=== PATIENT | female | born 2000 | race Caucasian/White ===

== ENCOUNTER 2020-02-04 12:52 | Outpatient (CLI) | payer OTHER, SELFPAY ==
--- NOTE | ~2020-02-04 | MR_ITS ---
EXAMINATION: MR brain/brain stem wo con DATE: 02/04/2020 14:34 INDICATION: Migraine headache. TECHNIQUE: Magnetic resonance imaging (MRI) of the brain and brainstem was performed without intraven ous contrast. Sequences included sagittal and axial T1-weighted FSE, axial diffusion-weighted FS EPI, axial T2*-weighted GRE, axial T2-weighted FLAIR Propeller, and axial T2-weighted Propeller. Apparent diffusion coefficient (ADC) maps were created. COMPARISON: Brain MRI 06/10/2016 FINDINGS: There is no intracranial hemorrhage, acute infarction, or abnormal intracranial mass lesion . The ventricles are normal in size. The orbits are normal. The paranasal sinuses are clear. The mast oid air cells are normal. IMPRESSION: 1. Normal brain. Reviewed, dictated and finalized at location A. IMPRESSION: 1. Normal brain.
== END 2020-02-04 12:53 | disposition home or self-care (01) ==
PROVIDERS: PCP Family Medicine; Visit Provider Psychiatry & Neurology Neurology
DX: G43.909 Migraine, unspecified, not intractable, without status migrainosus (principal)
CPT/HCPCS: 70551

== ENCOUNTER 2025-04-16 02:35 | Emergency (ER) | payer OTHER, SELFPAY ==
--- NOTE | ~2025-04-16 | XR_ITS ---
Right Knee Technique: AP, lateral, and sunrise views were obtained. Clinical History: Pain Findings: There is acute fracture of the medial tibial plateau with probable mild depression, simple tibial spine region to the medial cortex at the medial tibial plateau region. Soft tissues are unrema rkable. Small joint effusion is seen. Impression: Acute fracture medial tibial plateau region, as detailed above. Reviewed, dictated and finalized at location . Impression: Acute fracture medial tibial plateau region, as detailed above.
--- OUTSIDE RECORDS SUMMARY | 2025-04-16 02:38 | XMS_ITS | Clinical Summary ---
Author Organization [facility] Address [address] [place] [address] Care Team Providers Care Welding Machine Operator Gas Metal Arc Name Role Phone Unavailable Primary Care Provider Unavailabl e Source Comments [facility],non-owned Affiliates and Associated Physician Practices is amultiple site organization consisting of ambulatory clinics and hospital sitesin [place], [place], [place] and [place]. This disclosure is being madepursuant to the Care Everywhere program and may not contain all information available regarding this patient. Last updated 18.[facility] Allergies No known active allergies Medications * Be aware that medications may not be up to date on this document. Alwaysverify current medications with the patient. naproxen (NAPROSYN) 500 MG tablet Take one tablet every 12 hours as needed for severe headache 40 Tab 3 6 Active Additional Information Patient not taking.Reported on 09/01/2021 topiramate (TOPAMAX) 25 MG tablet Take 2 tablets nightly. 60 Tab 6 6 Active Additional Information Patient not taking.Reported on 09/01/2021 cyclobenzaprine (FLEXERIL) 5 MG tablet Take 1 (one) tablet by mouth 3 times daily as needed (Muscle spasms) 30 tablet 1 Active methylPREDNISol one (MEDROL DOSEPAK) 4 MG tablet Take by mouth as directed 1 Each 1 Active Active Problems Problem Noted Date Diagnosed Date Concussion Post concussive syndrome Family History Medical History Relation Name Comments Depression Maternal Grandmother Migraine Neg Hx Seizures Neg Hx Relation Name Status Comments Maternal Grandmother Social History Tobacco Use Types Packs/Day Years Used Date Smoking Tobacco: Never Smokeless Tobacco: Never Tobacco Cessation:Counseling Given: Yes Alcohol Use Standard Drinks/Week Comments Not Asked 0 (1 standard drink = 0.6 oz pur e alcohol) PHQ-2 Answer Date Recorded PHQ2 TOTAL SCORE 0 09/01/2021 Comments No Sex and Gender Information Value Date Recorded Sex Assigned at Not on file Legal Sex Female 8:11 AM DEHYDRATING PRESS OPERATOR Gender Identity Not on file Sexual Orientation Not on file Last Filed Vital Signs Vital Sign Reading Time Taken Comments Blood Pressure 117/78 09/01/2021 7:26 PM DEHYDRATING PRESS OPERATOR Pulse 88 09/01/2021 7:26 PM DEHYDRATING PRESS OPERATOR Temperature 36.7 C (98.1 F) 09/01/2021 7:26 PM DEHYDRATING PRESS OPERATOR Respiratory Rate - - Oxygen Saturation 100% 09/01/2021 7:26 PM DEHYDRATING PRESS OPERATOR Inhaled Oxygen Concentration - - Weight 61.2 kg (135 lb) 09/01/2021 7:26 PM DEHYDRATING PRESS OPERATOR Height 162.6 cm (5' 4) 09/01/2021 7:26 PM DEHYDRATING PRESS OPERATOR Body Mass Index 23.17 09/01/2021 7:26 PM DEHYDRATING PRESS OPERATOR Plan of Treatment Health Maintenance Due Date Last Done Comments HIV SCREENING 2014 HPV VACCINE (1 - 3-dose series) 2014 HEPATITIS C SCREENING 02/06/2017 DTAP/TDAP/TD VACCINES (1 - Tdap) 2018 HEPATITIS B VACCINE (1 of 3 - 19+ 3-dose series) 2018 COVID-19 VACCINE (1 - 2023-2 5 season) 2024 DEPRESSION SCREENING 09/11/2024 INFLUENZA VACCINE (#1) 2025 ZOSTER VACCINE (1 of 2) 2049 HIB VACCINE Aged Out No longer eligi ble based on patient's age to complete this topic MENINGOCOCCAL (Group B) VACC INE SHARED DECISION-MAKING Aged Out No longer eligibl e based on patient's age to complete this topic MENINGOCOCCAL GROUPS A/C/Y/W VACCINE Aged Out No longer eligible b ased on patient's age to complete this topic PNEUMOCOCCAL VACCINE Aged Out No long er eligible based on patient's age to complete this topic Insurance [employer] MEDICAID - [place] [facility] [place] Advance Directives Documents on File Type Date Recorded Patient Estate Planning Counselor Expl anation Adv Directive/Living Will/POA 10/22/2015 9:00 AM
--- OUTSIDE RECORDS SUMMARY | 2025-04-16 02:38 | XMS_ITS | Clinical Summary ---
Author Organization [facility] Address [address] [place] [address] Care Team Providers Care Senior Business Consultant Name Role Phone Benita Jean MD Primary Care Provider U navailable Allergies No known active allergies Medications betamethasone dipropionate (DIPROSONE) 0.05 % OintmentIndication s:Rash Apply to affected area 2 times daily. 15 Gram 4 Active escitalopram oxalate (LEXAPRO) 10 mg tabletIndications: Mixed obsessional thoughts and acts,Generalized anxiety disorder Take 1 Tablet (10 mg) by mouth daily. 100 Tablet 3 5 Active hydrOXYzine HCL (ATARAX) 25 mg tabletIndications: Anxiety state Take 1 Tablet (25 mg) by mouth 3 times daily as needed for Itching. 90 Tablet 3 5 Active amphetamine-dextro amphetamine (Adderall XR) 25 mg Extended Release 24 hour capsuleIndications :Attention deficit hyperactivity disorder (ADHD), predominantly inattentive type Take 1 Capsule (25 mg) by mouth daily in the morning. Max Daily Amount: 25 mg 30 Capsule 5 Active Active Problems Problem Noted Date Diagnosed Date Rash 07/12/2024 Assessment & Plan (07/12/2024 4:45 PM CDT): New problem with uncertain diagnosis and prognosis. Will treat with triamcinolone topically. RTC if not clearing. Obsessive compulsive disorder 06/21/2024 Assessment & Plan (07/12/2024 4:45 PM CDT): Chronic problem, improving. Continue lexapro as ordered. Assessment & Plan (06/21/2024 4:20 PM CDT): Chronic problem, needing medication change due to medication complication/evidence of early serotonin syndrome. Stop duloxetine and start escitalopram 10mg po daily. Educated on the medication, its use, indications, and potential adverse effects of the medication. Generalized anxiety disorder 06/21/2024 Assessment & Plan (07/12/2024 4:45 PM CDT): Chronic problem, improved. Medication working well. Continue lexapro and hydroxyzine. Follow up in 2 months. Assessment & Plan (06/21/2024 4:22 PM CDT): Chronic problem, worsening. Will switch from duloxetine due to AE. Switch to escitalopram. Recommend use of hydroxyzine PRN. Education provided that patient should seek out emergency medical help or call 911 if having passive or active thoughts of self-harm, suicidal ideation, or homicidal ideation. Patient acknowledged understanding and provided verbal contract to adhere to these recommendations should these symptoms emerge. Long-term current use of stimulant 10/22/2023 Attention deficit hyperactiv ity disorder (ADHD), predominantly inattentive type 09/12/2022 Assessment & Plan (07/12/2024 4:46 PM CDT): Chronic problem, well controlled, even with reduced dosing of adderall. Continue current dosing of adderall with recheck in 2 months. Assessment & Plan (06/21/2024 4:21 PM CDT): Chronic problem. Due to drug interaction and increased effect of amphetamine in the setting of SSRI, recommend reducing dose back to 25mg for now. Will re-evaluate in 3 weeks. Refused influenza vaccine 09/12/2022 Assessment & Plan (07/12/2024 4:45 PM CDT): Flu shot declined. COVID-19 vaccination declined 09/12/2022 Resolved Problems Problem Noted Date Diagnosed Date Resolved Date Serotonin syndrome 06/21/2024 Assessment & Plan (06/21/2024 4:19 PM CDT): New problem. Patient exhibiting mild symptoms of serotonin syndrome, likely induced from synergistic combination of serotonin uptake blockage from both amphetamine and duloxetine (SNRI). Will down titrate adderall XR to 25mg and transition patient off of duloxetine over to escitalopram 10mg po daily. Follow up in 3 weeks in clinic for clinical follow up and evaluation. Patient educated on worsening symptoms and encouraged to follow up sooner should symptoms worsen. Encounters Date Type Department Care Team Description 03/26/2025 External Device Data [facility] ABSTRACTION Provider, Abstract 03/26/2025 External Device Data ST[facility] ABSTRACTION Provider, Abstract 03/26/2025 External Device Data [facility] ABSTRACTION Provider, Abstract 03/25/2025 External Device Data [facility] ABSTRACTION Provider, Abstract 02/25/2025 External Device Data [facility] ABSTRACTION Provider, Abstract 02/25/2025 External Device Data [facility] ABSTRACTION Provider, Abstract 2025 External Device Data [facility] ABSTRACTION Provider, Abstract 2025 External Device Data [facility] ABSTRACTION Provider, Abstract 02/07/2025 8:45 AM CDT - 02/07/2025 11:59 PM CDT Hospital Encounter [address] [address] Melchor Ramsay, DO Discharge Disposition: Home or Self Care 01/30/2025 External Device Data ST[facility] ABSTRACTION Provider, Abstract 01/14/2025 External Device Data [facility] ABSTRACTION Provider, Abstract 01/14/2025 External Device Data STL ABSTRACTION Provider, Abstract from Last 3 Months Family History Medical History Relation Name Comments No Known Problems Brother No Known Problems Father No Known Problems Mother No Known Problems Sister Relation Name Status Comments Brother Alive Father Alive Mother Alive Sister Alive Social History Tobacco Use Types Packs/Day Years Used Date Smoking Tobacco: Never Smokeless Tobacco: Never Tobacco Cessation:Counseling Given: No Alcohol Use Standard Drinks/Week Comments Yes 0 (1 standard drink = 0.6 oz pur e alcohol) 2 drinks Comments No Sex and Gender Information Value Date Recorded Sex Assigned at Female 05/02/2024 6:54 AM CDT Legal Sex Female 10:42 AM CDT Gender Identity Female 05/02/2024 6:54 AM CDT Sexual Orientation Lesbian or Saleem 05/02/2024 6: 54 AM CDT Last Filed Vital Signs Vital Sign Reading Time Taken Comments Blood Pressure 114/80 07/12/2024 4:01 PM CDT Pulse 78 07/12/2024 4:01 PM CDT Temperature 36.9 C (98.5 F) 07/12/2024 4:01 PM CDT Respiratory Rate 18 07/12/2024 4:01 PM CDT Oxygen Saturation 100% 07/12/2024 4:01 PM CDT Inhaled Oxygen Concentration - - Weight 68 kg (150 lb) 08/28/2024 5:36 PM JOURNEYMAN ELECTRICIAN PV INSTALLER Height 162.6 cm (5' 4) 08/28/2024 5:36 PM JOURNEYMAN ELECTRICIAN PV INSTALLER Body Mass Index 25.75 08/28/2024 5:36 PM JOURNEYMAN ELECTRICIAN PV INSTALLER Plan of Treatment Health Maintenance Due Date Last Done Comments HPV VACCINES (1 - 3-dose series) 2014 HEPATITIS B VACCINES (3 of 3 - 3-dose series) 07/29/2017 05/13/2017, 04/08/2017 HPV/Cotest (21-29) 02/12/2020 INFLUENZA VACCINE (#1) 2025 , 11/08/2023, 09/12/2022, Additional history exists CERVICAL CANCER SCREENING 05/11/2025 PAP SMEAR 05/11/2025 05/11/2022 DTAP/TDAP/TD VACCINES (2 - T d or Tdap) 04/08/2027 04/08/2017 CHLAMYDIA SCREENING (ANNUAL) 11-24 YEARS Discontinued 05/11/2022 Procedures Procedure Name Priority Date/Time Associated Diagnosis Comments MRI SHOULDER WO CONTRAST LEFT Stat 02/07/2025 9:37 AM CDT Strain of other muscles, fascia and tendons at shoulder and upper arm level, left arm, subsequent encounter VAGINOSIS/VAGINITIS PANEL PLUS Routine 05/11/2022 6:01 PM CDT Screening for STD (sexually transmitted disease) CERV/VAG CYTO AGE BASED SCREEN PAP Routine 05/11/2022 6:01 PM CDT Pap smear for cervical cancer screening from Last 3 Months or Most Recently Relevant to Health Maintenance Results * MRI SHOULDER WO CONTRAST LEFT (02/07/2025 9:37 AM CDT) Anatomical Region Laterality Modality Upper Extremity Magnetic Resonan ce 02/07/2025 9:43 AM CDT Impressions 02/07/2025 9:54 AM CDT IMPRESSION: 1. Unremarkable MR examination of the left shoulder. DICTATION LOCATION: Location [address] [place] [address] CPM Narrative 02/07/2025 9:54 AM CDT MRI SHOULDER WO CONTRAST LEFT Ordering provider: MELCHOR RAMSAY History: Strain of other muscles, fascia and tendons at shoulder and upper arm level, left arm, subsequent encounter. See Diagnosis. Comparison: Shoulder radiographs dated 12/16/2024 FINDINGS: There is a type 2 acromion without a subacromial spur. The acromioclavicular joint appears normal. No significant subacromial-subdeltoid bursitis. The rotator cuff muscle bulk is normal. The rotator cuff tendons are intact without evidence of tendinopathy or tear. On this non-arthrographic examination, the long head of biceps appears intact. No focal glenoid labral tear identified. No focal glenohumeral chondrosis. A physiologic amount of fluid is present in the glenohumeral joint. There is red marrow within the bones of the shoulder girdle. No acute fracture or bone marrow replacing lesion. Procedure Note Blaise Ayon MD - 02/07/2025 MRI SHOULDER WO CONTRAST LEFT Ordering provider: MELCHOR RAMSAY History: Strain of other muscles, fascia and tendons at shoulder and upper arm level, left arm, subsequent encounter. See Diagnosis. Comparison: Shoulder radiographs dated 12/16/2024 FINDINGS: There is a type 2 acromion without a subacromial spur. The acromioclavicular joint appears normal. No significant subacromial-subdeltoid bursitis. The rotator cuff muscle bulk is normal. The rotator cuff tendons are intact without evidence of tendinopathy or tear. On this non-arthrographic examination, the long head of biceps appears intact. No focal glenoid labral tear identified. No focal glenohumeral chondrosis. A physiologic amount of fluid is present in the glenohumeral joint. There is red marrow within the bones of the shoulder girdle. No acute fracture or bone marrow replacing lesion. IMPRESSION: 1. Unremarkable MR examination of the left shoulder. DICTATION LOCATION: Location [address] [place] [address] us Melchor Ramsay DO MR ORDERABLES Final Resu lt * CERV/VAG CYTO AGE BASED SCREEN PAP (05/11/2022 6:01 PM CDT) COMMENT (PAP): Amy Hobbs Comment: This order for age-based cervical cancer and STI screening follows ACOG guidelines(PB 168, 140, MQB433). See individual assays for performing site location. CLINICAL INFORMATION Amy Hobbs Comment:Information not prov ided LAST MENSTRUAL PERIOD Amy Hobbs Comment:INFORMATION NOT PROV IDED PREV PAP: Amy Hobbs Comment:INFORMATION NOT PROV IDED PREV BX: Amy Hobbs Comment:INFORMATION NOT PROV IDED SOURCE Amy Hobbs Comment:Endocervix ADEQUACY: Amy Hobbs Comment: Satisfactory for evaluation. Endocervical/transformation zone component present. Age and/or menstrual status not provided PAP INTERP Amy Hobbs Comment:Negative for intraep ithelial lesion or malignancy. COMMENT (PAP TEST) Q ulaina Hobbs Comment: This Pap test has been evaluated with computer assisted technology. CHIEF LIBRARIAN BRANCH: Mary Hobbs Comment: MVB, CT(ASCP) CT Screening Location: [place] [address] [address] [place] [address] [address] NOTE Que [address] Facundo Hobbs Comment: EXPLANATORY NOTE: The Pap is a screening test for cervical cancer. It is not a diagnostic test and is subject to false negative and false positive results. It is most reliable when a satisfactory sample, regularly obtained, is submitted with relevant clinical findings and history, and when the Pap result is evaluated along with historic and current clinical information. Test Performed at: [place] [address] [address] [place] [place] [address] Priya-Ektau Thi Vo Genital SWAB OF ENDOCERVIX / Unknown 05/11/2022 6:01 PM CDT 05/11/2022 9:05 PM CDT Ema Jaimes NP PATHOLOGY/CYTOLOGY ORDERA BLES Final Result [facility] [phone] [facility] [address] [place] [address] * (ABNORMAL) VAGINOSIS/VAGINITIS PANEL PLUS (05/11/2022 6:01 PM CDT) BACTERIAL VAGINOSIS POSITIVE(A) NEGATIVE [facility] MARGO SPECIES NOT DETECTED NOT DETECTED [facility] [place] MARGO GLABRATA NOT DETECTED NOT DETECTED [facility] [place] Comment: Margo species C. albicans, C. tropicalis, C. parapsilosis, and/or C. dubliniensis can be detected, but not differentiated, in the Margo spp. result. TRICHOMONAS VAGINALIS (TV), TMA NOT DETECTED NOT DETECTED [facility] [place] C TRAC RNA NOT DETECTED NOT DETECTED [facility] [place] N.GONORRHOEAE RNA, TMA NOT DETECTED NOT DETECTED [facility] [place] Comment: For additional information, please refer to https://education.Liquid Grids/faq/EYF982 (This link is being provided for information/ educational purposes only.) Test Performed at: [facility] [address] [place] [address] Pasquale Christie D.O., MPH Genital SPECIMEN FROM VAGINA / Unknown 05/11/2022 6:01 PM CDT 05/11/2022 9:05 PM CDT Ema Jaimes NP MICROBIOLOGY - GENERAL OR DERABLES Final Result [facility] [phone] [facility] [address] [place] [address] from Last 3 Months or Most Recently Relevant to Health Maintenance Insurance [facility] Lettuce CHOICE Care Teams Senior Business Consultant Relationship Specialty Start Date End Date Benita Jean MD PCP - General Family Practice 12/12/22
[2025-04-16 02:39] VITALS: BP 118/68; PULSE 90; RESP 20; TEMP 36.7; O2SAT 100
[2025-04-16 03:53] VITALS: BP 110/66; PULSE 90; RESP 18; TEMP 36.7; O2SAT 99
--- OUTSIDE RECORDS SUMMARY | 2025-04-16 05:50 | XMS_ITS | Clinical Summary ---
Author Organization [facility] Address [address] [place] [address] Care Team Providers Care Picking Machine Operator Name Role Phone Benita Jean MD Primary [...] Encounters Date Type Department Care Team Description 04/15/2025 External Device Data ST[facility] ABSTRACTION Provider, Abstract [...] - 02/07/2025 11:59 PM CDT [facility] [address] [address] Melchor Ramsay, DO Discharge Disposition: Home or [...] 68 kg (150 lb) 08/28/2024 5:36 PM YOUTH SERVICES SPECIALIST Height 162.6 cm (5' 4) 08/28/2024 5:36 PM YOUTH SERVICES SPECIALIST Body Mass Index 25.75 08/28/2024 5:36 PM YOUTH SERVICES SPECIALIST Plan of Treatment Health Maintenance Due Date [...] of the left shoulder. DICTATION LOCATION: Location [address] [place] [address] CPM Narrative 02/07/2025 9:54 AM CDT MRI [...] of the left shoulder. DICTATION LOCATION: Location [address] [place] [address] [place] Melchor Ramsay DO MR ORDERABLES Final Resu lt * CERV/VAG CYTO AGE BASED SCREEN PAP (05/11/2022 6:01 PM CDT) COMMENT (PAP): Amy Hobbs Comment: This order for age-based cervical cancer and STI screening follows ACOG guidelines(PB 168, 140, KZA173). See individual assays for performing site location. [...] lesion or malignancy. COMMENT (PAP TEST) Q ulania Hobbs Comment: This Pap test has been evaluated with computer assisted technology. CHAR FILTER OPERATOR: Mary Hobbs Comment: MVB, CT(ASCP) CT Screening Location: [place] [address] [address] [place] [address] [address] Que [address] Facundo Hobbs Comment: [...] and current clinical information. Test Performed at: [facility] [place] [address] [place] [address] Renard Shirley Genital SWAB OF ENDOCERVIX / Unknown 05/11/2022 6:01 PM CDT 05/11/2022 9:05 PM CDT Ema Jaimes NP PATHOLOGY/CYTOLOGY ORDERA BLES Final Result [facility] [phone] [facility] [address] [place] [address] * (ABNORMAL) VAGINOSIS/VAGINITIS PANEL PLUS (05/11/2022 6:01 PM CDT) BACTERIAL VAGINOSIS POSITIVE(A) NEGATIVE [facility] MARGO SPECIES NOT DETECTED NOT DETECTED [facility] MARGO GLABRATA NOT DETECTED NOT DETECTED [facility] Comment: Margo species C. albicans, C. tropicalis, C. parapsilosis, and/or C. dubliniensis can be detected, but not differentiated, in the Margo spp. result. TRICHOMONAS VAGINALIS (TV), TMA NOT DETECTED NOT DETECTED [facility] C TRAC RNA NOT DETECTED NOT DETECTED [facility] N.GONORRHOEAE RNA, TMA NOT DETECTED NOT DETECTED [facility] Comment: For additional information, please refer to https://SheFinds Media.PingStamp/faq/ZTU273 (This link is being provided for information/ educational purposes only.) Test Performed at: [facility] [address] [address] Pasquale Christie D.O., MPH Genital SPECIMEN FROM VAGINA / Unknown 05/11/2022 6:01 PM CDT 05/11/2022 9:05 PM CDT Ema Jaimes NP MICROBIOLOGY - GENERAL OR DERABLES Final Result Performing Organization Address City/State/[place]IP [place] Phone Number [facility] [phone] [facility] [address] [place] [phone] from Last 3 Months or Most Recently Relevant to Health Maintenance Insurance [facility] [id number] ACCESS CHOICE * Guarantor: [id number] Account Type Relation to Patient Date of Phone Billing Address Workers Comp Employer [address] [phone] Care Teams Picking Machine Operator Relationship Specialty Start Date End Date Benita Jean MD PCP - General Family Practice 12/12/22
--- OUTSIDE RECORDS SUMMARY | 2025-04-16 05:50 | XMS_ITS | Encounter Summary ---
Author Organization [facility] Address [address] [place] [address] Care Team Providers Care Whiteprinting Machine Operator Name Role Phone Benita Jean MD Primary Care Provider U navailable Encounter Details Date Type Department Care Team (Late st Contact Info) Description 04/15/2025 External Device Data [facility] ABSTRACTION Provider, Abstract NO ADDRESS ON FILE Social History Tobacco Use Types Packs/Day Years Used Date Smoking Tobacco: Never Smokeless Tobacco: Never Alcohol Use Standard Drinks/Week Comments Yes 0 (1 standard drink = 0.6 oz pur e alcohol) 2 drinks Comments No Sex and Gender Information Value Date Recorded Sex Assigned at Female 05/02/2024 6:54 AM CDT Legal Sex Female 10:42 AM CDT Gender Identity Female 05/02/2024 6:54 AM CDT Sexual Orientation Lesbian or Saleem 05/02/2024 6: 54 AM CDT documented as of this encounter Plan of Treatment Not on file documented as of this encounter Visit Diagnoses Not on filedocumented in this encounter Care Teams Whiteprinting Machine Operator Relationship Specialty Start Date End Date Benita Jean MD PCP - General Family Practice 12/12/22 documented as of this encounter
--- OUTSIDE RECORDS SUMMARY | 2025-04-16 05:50 | XMS_ITS | Clinical Summary ---
Author Organization [email or web address] Address [address] [place] [address] Care Team Providers Care Body Repairer Name Role Phone Unavailable Primary Care Provider Unavailabl e Source Comments [email or web address],non-owned Affiliates and Associated Physician Practices is amultiple site organization consisting of ambulatory clinics and hospital sitesin [place], [place], [place] and [place]. This disclosure is being madepursuant to the Care Everywhere program and may not contain all information available regarding this patient. Last updated [email or web address] Allergies No known active allergies Medications * [...] on file Legal Sex Female 8:11 AM LIFE SUPPORT TECHNICIAN Gender Identity Not on file Sexual Orientation Not on file Last Filed Vital Signs Vital Sign Reading Time Taken Comments Blood Pressure 117/78 09/01/2021 7:26 PM LIFE SUPPORT TECHNICIAN Pulse 88 09/01/2021 7:26 PM LIFE SUPPORT TECHNICIAN Temperature 36.7 C (98.1 F) 09/01/2021 7:26 PM LIFE SUPPORT TECHNICIAN Respiratory Rate - - Oxygen Saturation 100% 09/01/2021 7:26 PM LIFE SUPPORT TECHNICIAN Inhaled Oxygen Concentration - - Weight 61.2 kg (135 lb) 09/01/2021 7:26 PM LIFE SUPPORT TECHNICIAN Height 162.6 cm (5' 4) 09/01/2021 7:26 PM LIFE SUPPORT TECHNICIAN Body Mass Index 23.17 09/01/2021 7:26 PM LIFE SUPPORT TECHNICIAN Plan of Treatment Health Maintenance Due Date [...] patient's age to complete this topic Insurance [facility] MEDICAID - [place] [facility] [place]ICAID - [place] Advance Directives Documents on File Type Date Recorded Patient Certified Technician Expl anation Adv Directive/Living Will/POA 10/22/2015 9:00 AM
[2025-04-16] MEDS: HYDROcodone/acetaminophen (*CRX) 5-325 MG TABLET 1 TAB PO (06:12)
[2025-04-16 06:13] VITALS: BP 113/74; PULSE 76; RESP 18; O2SAT 99
--- NOTE | 2025-04-16 06:16 | ED_ITS ---
HPI - Extremity Injury (Lower) General Chief Complaint: Extremity Injury, Lower Stated Complaint: right knee injury after jumping and landing wrong Time Seen by Provider: 04/16/25 05:31 Source: patient History of Present Illness HPI Narrative: Patient presents with R knee pain/injury after jumping and landing wrong. States unable to move it without pain. Denies any popping/clicking. Pain 9/10 with no movement. Entire knee joint hurts by report though she is able to identify most of pain comes from proximal tibia and medial aspect of joint. No paresthesias. No history of injury/issue with this area before. Not on anticoagulation. No prior orthopedic surgery encounters. Related Data Allergies Allergy/AdvReac Type Severity Reaction Status Date / Time No Known Allergies Allergy Verified 04/16/25 02:36 [facility] Past Medical History Medical History Chronic headaches Family History Family History Mother Hypertension Social History Social History Smoking status: Never smoker Alcohol intake: never Substance use: never Substance use type: does not use Occupation/Education: occupation Exam Narrative: GENERAL: Well-appearing, well-nourished, in mild to moderate acute distress. HEAD: Normocephalic, atraumatic. EYES: Non injected, non icteric but tears ENT: No epistaxis. Gross auditory acuity intact. NECK: Supple. No meningismus. CHEST: Speaking in full sentences. No respiratory distress. HEART: Regular rate and rhythm. . ABDOMEN: Soft, nondistended. No rigidity or guarding. Not peritoneal EXTREMITIES: No lower extremity edema. TTP throughout right knee joint. 5/5 strength R ankle dorsiflexion/plantar flexion. Patient can engage extensor mechanism to approximately 30 degrees. Full ROM limited due to pain. SKIN: Warm, dry, no rash. NEURO: No focal deficits. Alert and oriented. Answering questions. Following commands. Normal speech without aphasia or dysarthria. Sensation intact throughout leg inculding at knee and distal to knee. PSYCH: Normal mood and affect. Course Vital Signs Vital signs: Vital Signs Temperature 98.0 F 04/16/25 02:39 Pulse Rate 90 04/16/25 02:39 Respiratory Rate 20 04/16/25 02:39 Blood Pressure 118/68 04/16/25 02:39 Pulse Oximetry 100 04/16/25 02:39 Oxygen Delivery Room Air 04/16/25 02:39 Temperature 97.9 F 04/16/25 08:00 Pulse Rate 72 04/16/25 08:00 Respiratory Rate 16 04/16/25 08:00 Blood Pressure 105/75 04/16/25 08:00 Pulse Oximetry 100 04/16/25 08:00 Oxygen Delivery Room Air 04/16/25 02:39 MDM - Extremity Injury (Lower) MDM Narrative Medical decision making narrative: Patient presents with R knee pain after jumping and landing wrong. In the emergency department they are afebrile with vital signs within normal limits. Imaging as below. Attempted to page Dr Cr twice without response. Patient to be discharged. Given knee immobilizer, Rx for OTC analgesics as well as opiates for breakthrough pain and bowel regimen to use with opiates. At 08:33, Dr Cr did call back and was informed about this patient's presentation, physical exam, injury. He confirmed acknowledgement and agreement with assessment and plan. . Differential Diagnosis Differential diagnosis: Likely acute internal derangement of knee (including meniscal injury; ligamentous injury), fracture of femur and other (tibial plateau fracture; considered sprain/strain and quadriceps rupture/tear) Imaging Data Radiologist's impression: Impressions Knee X-Ray 04/16/25 06:30 Impression: Acute fracture medial tibial plateau region, as detailed above. Discharge Plan Discharge Clinical Impression: Closed fracture of right tibial plateau Patient Disposition: Home Condition: Stable Instructions: Antibiotic Form, Leg Fracture (ED), Narcotic Safety (ED), Knee Immobilizer (ED) Additional Instructions: Acetaminophen/Tylenol (maximum 4000 mg per day) is safe to take with NSAIDs (ibuprofen/Motrin) for pain relief. For breakthrough pain, narcotic/opiate medications have been prescribed. These can cause constipation so take with the stool softener. Call the orthopedic surgeon office today to schedule follow-up appointment. Return to the emergency department with any new or worsening symptoms. Patient Language: Z[place]ian Prescriptions: New ibuprofen 600 mg tablet 600 mg PO TID PRN (Reason: pain) Qty: 30 0RF acetaminophen 500 mg capsule 1,000 mg PO Q6H PRN (Reason: pain) Qty: 30 0RF oxycodone 5 mg tablet 5 mg PO Q8H PRN (Reason: pain) Qty: 20 0RF polyethylene glycol 3350 [Miralax] 17 gram/dose powder 17 g PO DAILY PRN (Reason: constipation) Qty: 119 0RF No Action triamcinolone acetonide 0.1 % cream 1 applic topical BID Qty: 30 2RF sumatriptan succinate [Imitrex] 100 mg tablet See Rx Instructions PO .COMPLEX Qty: 10 0RF Rx Instructions: take 1 tab at onset of headache; if no relief, may repeat 1 tab after at least 2 hrs; max = 2 tabs/24 hrs PO Follow-up/Referrals: PHYSICIAN,CANVAS REPAIRER [Primary Care Provider] - Ramin Cr MD [Physician] - Stand Alone Forms: Work/School Release IP Time of Disposition: 08:02
[2025-04-16 07:00] VITALS: BP 114/60; PULSE 67; RESP 16; TEMP 36.6; O2SAT 99
[2025-04-16 08:00] VITALS: BP 105/75; PULSE 72; RESP 16; TEMP 36.6; O2SAT 100
[2025-04-16] MEDS: ACETAMINOPHEN 325 MG TABLET 650 MG PO (08:07)
[2025-04-16] MEDS: KETOROLAC 30 MG/ML VIAL (*BKC) IM (08:08)
== END 2025-04-16 08:19 | disposition home or self-care (01) ==
PROVIDERS: Emergency Provider Student in an Organized Health Care Education/Training Program
DX: S82.141A Displaced bicondylar fracture of right tibia, initial encounter for closed fracture (principal); X50.9XXA Other and unspecified overexertion or strenuous movements or postures, initial encounter
CPT/HCPCS: 73562; 96372; 99284; A9270; J1885